=== PATIENT | male | born 1955 | race Caucasian/White ===

== ENCOUNTER 2017-01-25 08:42 | Day surgery (SDC) | payer BC ==
[2017-01-25] MEDS ORDERED: BACITRACIN IRRIGATION/NS 50,000 UNITS/1,000 ML BTL IRR ONE (08:45)
[2017-01-25] MEDS ORDERED: NS 1,000 ML IV ONE (08:45)
[2017-01-25] MEDS ORDERED: ceFAZolin 2 GM/DEXTROSE 100 ML IV ONE (08:45)
[2017-01-25] MEDS ORDERED: diphenhydrAMINE 25 MG CAP PO ONE (08:45)
[2017-01-25] MEDS ORDERED: DIAZEPAM 5 MG TAB PO ONE (08:45)
--- NOTE | 2017-01-25 08:59 | CPEKG ---
Heart Rate: 83 RR Interval: 723 QRSD Interval: 88 QT Interval: 364 QTC Interval: 428 QRS [place]: 39 T Wave [place]: 40 EKG Severity - ABNORMAL ECG - EKG Impression: AFIB/FLUT AND V-PACED COMPLEXES EKG Impression: LOW VOLTAGE IN FRONTAL LEADS Electronically Signed By: Butch Peters 25-Jan-2017 17:35:31
[2017-01-25 09:18] LABS: % IMMATURE GRANULYOCYTES 0.6 % (0.0-1.1); ABSOLUTE IMMATURE GRANULOCYTES 0.06 10^3/uL (0.00-0.10); ADD DIFF? NO; ADD MORPH? NO; ADD SCAN? NO; ATYPICAL LYMPHOCYTE FLAG 30 (0-99); FRAGMENT RBC FLAG 0 (0-99); HEMATOCRIT 52.3 % (40.0-51.0); HEMOGLOBIN 17.6 g/dL (13.7-17.5); LEFT SHIFT FLG 0 (0-99); LIPEMIA HEMOLYSIS FLAG 80 (0-99); MEAN CELL HEMOGLOBIN 32.8 pg (27.9-34.1); MEAN CELL HEMOGLOBIN CONCENTR. 33.7 g/dL (32.4-36.7); MEAN CELL VOLUME 97.4 fL (81.5-99.8); MEAN PLATELET VOLUME 8.9 fL (8.7-11.7); PLATELET CLUMPS FLAG 0 (0-99); PLATELET COUNT 183 10^3/uL (150-400); RED BLOOD CELL COUNT 5.37 10^6/uL (4.40-6.38); RED CELL DISTRIBUTION WIDTH 14.5 % (11.5-15.2)
[2017-01-25 09:33] LABS: ANION GAP 12 mEq/L (8-16); CALCIUM 9.2 mg/dL (8.5-10.4); CARBON DIOXIDE 21 mEq/l (22-31); CHLORIDE 110 mEq/L (97-110); GLOMERULAR FILTRATION RATE > 60; GLUCOSE 81 mg/dL (70-100); POTASSIUM 5.4 mEq/L (3.5-5.2); SODIUM 143 mEq/L (134-144); SPECIMEN HEMOLYSIS 174
[2017-01-25] MEDS ORDERED: MIDAZOLAM 2 MG/2 ML VIAL ONE (09:41)
[2017-01-25] MEDS ORDERED: LIDO/EPI 1% **for epidural** 30 ML SDV ONE (09:41)
[2017-01-25] MEDS ORDERED: LIDOCAINE 1% 300 MG/30 ML SDV ONE (09:41)
[2017-01-25] MEDS ORDERED: fentaNYL 100 MCG/2 ML INJ ONE (09:41)
[2017-01-25] MEDS ORDERED: BUPIVACAINE 0.5% 30 ML SDV ONE (09:41)
[2017-01-25 09:55] LABS: INR 1.23 (0.83-1.16); PROTIME(PATIENT) 15.5 SEC (12.0-15.0)
--- NOTE | 2017-01-25 11:26 | SUROPNOTE ---
[facility] Operative Report - Surgery PROCEDURE: GEN CHANGE INDICATION: PACER AT [facility] PROCEDURE DETAILS: After consent was obtained, the patient was brought to the cardiac label operator in fasted state, and placed on the table in usual sterile fashion. Fluoroscopic review of the old pacer and lead position was undertaken. Lidocaine was used for local anesthetic. Heart rate, blood pressure, respirations, and oxygen saturations were monitored over the course of the procedure. Initial incision was made with a #12 blade, then a Bovie was used for depth and width. The old device was exposed and explanted, and a raytech soaked in Bacitracin was placed into the surgical pocket. The lead were interrogated Atrial lead: P wave at 0.5 mV with impedance of 448 ohms. It was noted the patient was in atrial fibrillation and no threshold was obtained. Ventricular lead: R wave was 8.5 mV with impedance of 390 ohms. Threshold of 0.8 V at 0.4 ms. Old device: Biotronik Cylos DR Rock#: [id number]; SN: [id number] Interrogation of the old device with 20 minutes of atrial fibrillation noted on 06/16/16, and brief salvos were noted since that time. I discussed this finding with the patient's . [id number] score is zero. It was also noted that the patient displayed apnic periods during the procedure (given the sedation that was noted). The pocket was inspected for haemostasis and flushed with Bacitracin. No bleeding was appreciated from the pocket. The new device was implanted: Biotronik Eluna 8 MILANA Kidd [id number] SN: [id number] This device was not sutured into position (no changes to the old pocket were made). Interrogation of the device with normal functioning noted. No complications were appreciated No need for CXR or overnight stay. The patient to go home after recovery from the sedation Strong recommendations against smoking Would have formal sleep study given the pAF noted ASA therapy alone for the time being given the [id number] score risk
--- NOTE | 2017-01-25 11:53 | CPEKG ---
Heart Rate: 77 RR Interval: 779 P-R Interval: 213 QRSD Interval: 144 QT Interval: 456 QTC Interval: 517 P [place]: 0 QRS [place]: 109 T Wave [place]: -8 EKG Severity - ABNORMAL ECG - EKG Impression: VENTRICULAR-PACED COMPLEXES EKG Impression: ATRIAL FIBRILLATION, V-RATE 0-0 Electronically Signed By: Butch Peters 25-Jan-2017 17:35:01
== END 2017-01-25 13:31 | disposition home or self-care (01) ==
LOC: FCATH 08:42
PROVIDERS: ATTEND Internal Medicine Cardiovascular Disease
PROC: 0JH606Z Insertion of Pacemaker, Dual Chamber into Chest Subcutaneous Tissue and Fascia, Open Approach (ICD-10-PCS; principal; 2017-01-25)
PROC: 0JPT0PZ Removal of Cardiac Rhythm Related Device from Trunk Subcutaneous Tissue and Fascia, Open Approach (ICD-10-PCS; principal; 2017-01-25)
DX: Z45.010 Encounter for checking and testing of cardiac pacemaker pulse generator [battery] (principal); I25.10 Atherosclerotic heart disease of native coronary artery without angina pectoris; I48.0 Paroxysmal atrial fibrillation; I73.9 Peripheral vascular disease, unspecified; E78.5 Hyperlipidemia, unspecified; Z72.0 Tobacco use; I71.4 Abdominal aortic aneurysm, without rupture; I49.5 Sick sinus syndrome
CPT/HCPCS: C1785; J0690; J2250; J3010

== ENCOUNTER → 2017-02-15 | Outpatient (CLI) | payer BC ==
[~2017-02-15] MED LIST: IOPAMIDOL (ISOVUE 370) 100 ML BTL IV ONE
== END ==
LOC: FIMAGING 14:34
PROVIDERS: ATTEND Radiology Diagnostic Radiology
DX: I71.4 Abdominal aortic aneurysm, without rupture (principal); I77.1 Stricture of artery
CPT/HCPCS: Q9967

== ENCOUNTER 2017-04-13 05:47 | Inpatient (IN) | payer BC ==
[~2017-04-13 05:47] MED LIST changes: -IOPAMIDOL (ISOVUE 370) 100 ML BTL IV ONE; +cefOXitin SODIUM 2 GM in D5W 100 ML IV ONE
[2017-04-13] MEDS ORDERED: LR 1,000 ML IV ONE (06:14)
[2017-04-13] MEDS ORDERED: LIDOCAINE 1% 2 ML INJ ID PRN (06:14)
[2017-04-13 06:54] LABS: % IMMATURE GRANULYOCYTES 0.6 % (0.0-1.1); ABSOLUTE IMMATURE GRANULOCYTES 0.05 10^3/uL (0.00-0.10); ADD DIFF? NO; ADD MORPH? NO; ADD SCAN? NO; ATYPICAL LYMPHOCYTE FLAG 10 (0-99); FRAGMENT RBC FLAG 0 (0-99); HEMATOCRIT 46.1 % (40.0-51.0); HEMOGLOBIN 15.9 g/dL (13.7-17.5); LEFT SHIFT FLG 0 (0-99); LIPEMIA HEMOLYSIS FLAG 90 (0-99); MEAN CELL HEMOGLOBIN 32.9 pg (27.9-34.1); MEAN CELL HEMOGLOBIN CONCENTR. 34.5 g/dL (32.4-36.7); MEAN CELL VOLUME 95.2 fL (81.5-99.8); MEAN PLATELET VOLUME 8.7 fL (8.7-11.7); PLATELET CLUMPS FLAG 10 (0-99); PLATELET COUNT 149 10^3/uL (150-400); RED BLOOD CELL COUNT 4.84 10^6/uL (4.40-6.38); RED CELL DISTRIBUTION WIDTH 13.5 % (11.5-15.2)
[2017-04-13 07:03] LABS: INR 1.2 (0.83-1.16); PROTIME(PATIENT) 15.2 SEC (12.0-15.0)
[2017-04-13 07:08] LABS: ANION GAP 11 mEq/L (8-16); CALCIUM 9.1 mg/dL (8.5-10.4); CARBON DIOXIDE 22 mEq/l (22-31); CHLORIDE 107 mEq/L (97-110); GLOMERULAR FILTRATION RATE > 60; GLUCOSE 93 mg/dL (70-100); POTASSIUM 4.1 mEq/L (3.5-5.2); SODIUM 140 mEq/L (134-144)
[2017-04-13] MEDS ORDERED: BUPIVACAINE 0.5% 30 ML SDV ONE (07:50)
[2017-04-13] MEDS ORDERED: ONDANSETRON 4 MG/2 ML VIAL IVP PRN ×2 (07:52→09:49)
[2017-04-13] MEDS ORDERED: HYDROmorphONE/DILAUDID 1 MG/ML INJ IVP PRN (07:52)
[2017-04-13] MEDS ORDERED: ALBUTEROL 3 ML DEYVIAL IH PRN (07:52)
[2017-04-13] MEDS ORDERED: NALOXONE HCL 0.4 MG/ML INJ IVP PRN (07:52)
[2017-04-13] MEDS ORDERED: OXYCODONE/APAP 5/325 TAB PO PRN ×2 (07:52→09:49)
[2017-04-13] MEDS ORDERED: NS 500 ML IV PRN (07:52)
[2017-04-13] MEDS ORDERED: fentaNYL 100 MCG/2 ML INJ IVP PRN (07:52)
[2017-04-13] MEDS ORDERED: MIDAZOLAM 2 MG/2 ML VIAL IVP ONE (07:52)
[2017-04-13] MEDS ORDERED: ACETAMINOPHEN 500 MG TAB PO PRN ×2 (07:52→17:12)
[2017-04-13] MEDS ORDERED: THROMBIN (BOVINE) 20,000 UNIT VIAL TP ONE (07:52)
--- NOTE | 2017-04-13 07:52 | PDANEPAE ---
ANE History of Present Illness AAA Endo ANE Past Medical History - Cardiovascular History Hx Hypertension: Yes Hx Arrhythmias: Yes Hx Chest Pain: No Hx Coronary Artery / Peripheral Vascular Disease: No Hx CHF / Valvular Disease: No Hx Palpitations: No Cardiovascular History Comment: SSS, ASYSTOLE - Pulmonary History Hx COPD: No Hx Asthma/Reactive Airway Disease: No Hx Recent Upper Respiratory Infection: No Hx Oxygen in Use at Home: No Hx Sleep Apnea: No Sleep Apnea Screening Result - Last Documented: Positive - Neurologic History Hx Cerebrovascular Accident: No Hx Seizures: No Hx Dementia: No - Endocrine History Hx Diabetes: No - Renal History Hx Renal Disorders: No - Liver History Hx Hepatic Disorders: Yes Hepatic History Comment: HEPATITIS B - Neurological & Psychiatric Hx Hx Neurological and Psychiatric Disorders: No - Cancer History Hx Cancer: No - Congenital Disorder History Hx Congenital Disorders: No - GI History Hx Gastrointestinal Disorders: Yes Gastrointestinal History Comment: DIVERTICULITIS - Other Health History Other Health History: NONE - Chronic Pain History Chronic Pain: No - Surgical History Prior Surgeries: pacemaker placement ANE Review of Systems Review of Systems: - Exercise capacity METS (RN): 4 METS - Pacemaker Pacemaker Type: Bi-Ventricular Pacemaker Vendor Management Consultant: Nexopia Pacemaker Mode: DDD Pacemaker Set Rate: 75 Date Pacemaker Last Checked: 02/02/17 ANE Patient History - Allergies Allergies/Adverse Reactions: No Allergies [NKDA] Allergy (Verified 01/25/17 08:45) - Home Medications Home Medications: Acetaminophen [Tylenol ES 500 mg (*)] 1,000 mg PO DAILY PRN 01/25/17 [Last Taken 3 Days Ago ~01/22/17] Aspirin EC [Aspirin EC 81 mg (*)] 81 mg PO DAILY 01/25/17 [Last Taken 01/25/17] Atorvastatin Calcium [Lipitor 20 mg (*)] 20 mg PO HS 01/25/17 [Last Taken ] Diltiazem HCl [Cardizem Cd] 240 mg PO DAILY 01/25/17 [Last Taken 01/25/17] Herbals/Supplements -Info Only 1 ea PO DAILY 01/25/17 [Last Taken Unknown] Ibuprofen [Motrin (*)] 400 mg PO DAILY PRN 01/25/17 [Last Taken Unknown] Metoprolol Tartrate [Lopressor 100 mg (*)] 100 mg PO BID 01/25/17 [Last Taken ] Multivitamins [Multivitamin (*)] 1 each PO DAILY 01/25/17 [Last Taken Unknown] Wilson-3 Fatty Acids [Fish Oil 1000 mg (*)] 1,000 mg PO DAILY 01/25/17 [Last Taken Unknown] - NPO status NPO Since - Liquids (Date): 04/12/17 NPO Since - Liquids (Time): 23:00 NPO Since - Solids (Date): 04/12/17 NPO Since - Solids (Time): 21:00 - Smoking Hx Smoking Status: Current every day smoker - Family Anes Hx Family Hx Anesthesia Complications: none ANE Labs/Vital Signs - Labs Result Diagrams: 04/13/17 06:40 04/13/17 06:40 - Vital Signs Blood Pressure: 116/85 Heart Rate: 81 Respiratory Rate: 16 O2 Sat (%): 95 Height: 177.8 cm Weight: 81.647 kg ANE Physical Exam - Airway Neck exam: FROM Mallampati Score: Class 2 Mouth exam: dentures - Pulmonary Pulmonary: clear to auscultation - Cardiovascular Cardiovascular: regular rate and rhythym - ASA Status ASA Status: III ANE Anesthesia Plan Anesthesia Plan: general endotracheal anesthesia
[2017-04-13] MEDS ORDERED: PROPOFOL 200 MG/20 ML VIAL ONE (07:58)
[2017-04-13] MEDS ORDERED: ROCURONIUM 100 MG/10 ML VIAL ONE (07:58)
[2017-04-13] MEDS ORDERED: fentaNYL 100 MCG/2 ML INJ ONE ×2 (07:58→10:59)
[2017-04-13] MEDS ORDERED: LIDOCAINE 2% 5 ML SDV ONE (07:59)
--- NOTE | 2017-04-13 08:01 | PDHPUP ---
History & Physical Update H&P update statement: This history and physical update is based on an assessment of the patient which was completed after admission or registration (within 24 hours), but prior to the surgery/procedure. H&P update: H&P reviewed & patient examined, no change in patient's condition since H&P completed
[2017-04-13] MEDS ORDERED: MIDAZOLAM 2 MG/2 ML VIAL ONE (08:06)
[2017-04-13] MEDS ORDERED: VASOPRESSIN 20 UNIT/ML VIAL ONE (08:43)
[2017-04-13] MEDS ORDERED: METOCLOPRAMIDE 10 MG/2 ML VIAL ONE (08:48)
[2017-04-13] MEDS ORDERED: ONDANSETRON 4 MG/2 ML VIAL ONE (08:48)
[2017-04-13] MEDS ORDERED: DEXAMETHASONE 4 MG/ML VIAL ONE (08:48)
--- NOTE | 2017-04-13 08:52 | GHP ---
[f rep st] PREOP HISTORY AND PHYSICAL DATE OF ADMISSION: 04/13/2017 CHIEF COMPLAINT: Abdominal aortic aneurysm. HISTORY OF PRESENT ILLNESS: The patient is a 61-year-old male, who has an abdominal aortic aneurysm. He was initially seen in the office in October of 2016. He was seen by interventional radiologist Dr. Dwyer it was determined that he could be candidate for endovascular stent graft repair. CT angiogram reveals his aneurysm to be about 6.3 cm in size with a saccular form. The patient feels some leg cramps and fatigue when walking fast to about a 3- block distance. He is still smoking, but trying to quit. CTA also outlines peripheral arterial disease. PAST MEDICAL HISTORY: Atrial fibrillation, coronary artery disease, diverticulitis, hepatitis, hypercholesterolemia, hyperlipidemia, permanent pacemaker placement, peripheral vascular disease, sick sinus syndrome, tobacco use. PAST SURGICAL HISTORY: Includes pacemaker placement. MEDICATIONS: Acetaminophen, aspirin, Cardizem, Co-Q10, fish oil, ibuprofen, Lipitor, metoprolol, multivitamin. ALLERGIES: No known drug allergies. FAMILY HISTORY: Includes atrial fibrillation and coronary artery disease. SOCIAL HISTORY: The patient does not drink alcohol. He has 3 children. He does smoke, but is trying to quit, currently at less than a half pack per day. REVIEW OF SYSTEMS: A 10-point review of systems negative, except for that noted in the HPI. PHYSICAL EXAM: GENERAL: Well developed, well nourished. HEENT: Normocephalic , atraumatic. CHEST: Clear to auscultation bilaterally. CARDIAC: Regular rate and rhythm. ABDOMEN: Soft with pulsating mass, nontender. EXTREMITIES: Warm, well perfused. Palpable femoral pulses. Absent pedal pulses. NEUROLOGIC : Grossly intact. IMPRESSION: This is a 61-year-old male with an abdominal aortic aneurysm and peripheral vascular disease with claudication symptoms. PLAN: Plan is to proceed with exposure and closure of femoral arteries for placement of stent graft for abdominal aortic aneurysm repair. We will also perform bilateral endarterectomies. This may improve his claudication symptoms ; however, he may require further intervention for this. Risks and options have been discussed including open repair, and he requests to proceed. /[id number]/MODL MTDD
[2017-04-13] MEDS ORDERED: HEPARIN 10,000 UNIT/10 ML MDV ONE (09:43)
--- NOTE | 2017-04-13 09:55 | POSTOPPROG ---
Post Op Note Date of Operation: 04/13/17 Surgeon: Guillermina Don Asian Studies Professor: Guillermina Don Anesthesiologist: Ebenezer Naranjo Anesthesia: GET(General Endotracheal) Pre-op Diagnosis: AAA Post-op Diagnosis: same Procedure: B femoral artery exposures and closures for EVAR Findings: R groin with scarring, hemostatic control achieved. Inf/Abcess present in the surg proc area at time of surgery?: No EBL: Minimal Complications: none
--- NOTE | 2017-04-13 09:58 | POSTOPPROG ---
Post Op Note Date of Operation: 04/13/17 Surgeon: Guillermina Don Obiee Obia Solution Architect: Guillermina Don Anesthesiologist: Ebenezer Naranjo Anesthesia: GET(General Endotracheal) Pre-op Diagnosis: PAD, claudication Post-op Diagnosis: same Procedure: B femoral endartectomy c patch closures Findings: significant irregular calcified and granular plaques Inf/Abcess present in the surg proc area at time of surgery?: No EBL: 50-100 Complications: none Specimen(s): plaque to pathology
[2017-04-13] MEDS ORDERED: IOPAMIDOL (ISOVUE-300) 100 ML BTL ONE ×2 (10:14→10:27)
[2017-04-13] MEDS ORDERED: ROCURONIUM 50 MG/5 ML VIAL ONE (11:53)
[2017-04-13] MEDS ORDERED: PROTAMINE SULFATE 50 MG/5 ML VIAL IVP ONE (12:38)
[2017-04-13] MEDS ORDERED: SUGAMMADEX SODIUM 200 MG/2 ML VIAL IVP ONE (12:45)
--- NOTE | 2017-04-13 13:53 | POSTANESTH ---
Post Anesthetic Evaluation Cardiovascular Status: Normal, Stable Respiratory Status: Normal, Stable Level of Consciousness/Mental Status: Can Participate in Eval, Mildly Sleepy, Arousable Pain Control: Adequate, Prn Tx Ordered Nausea/Vomiting Control: Adequate, Prn Tx Ordered Complications Possibly Related to Anesthesia: None Noted
[2017-04-13] MEDS: HYDROmorphONE/DILAUDID 1 MG/ML INJ IVP PRN ×3 (14:20→23:44)
[2017-04-13] MEDS: NS W/ 20 KCl/L 1,000 ML IV SCH ×2 (14:22→22:25)
--- NOTE | 2017-04-13 15:24 | CPEKG ---
Heart Rate: 92 RR Interval: 652 P-R Interval: 136 QRSD Interval: 90 QT Interval: 388 QTC Interval: 481 P [place]: 0 QRS [place]: 66 T Wave [place]: 102 EKG Severity - ABNORMAL ECG - EKG Impression: A-V DUAL-PACED COMPLEXES W/ SOME INHIBITION Electronically Signed By: Butch Phipps 15-Apr-2017 14:04:17
--- NOTE | 2017-04-13 15:29 | GOP ---
[f rep st] OPERATIVE REPORT DATE OF OPERATION: 04/13/2017 SURGEON: Munir Pierre MD INFORMATION ASSURANCE OFFICER: CHERIE Parks ANESTHESIOLOGIST: Ebenezer Naranjo DO PREOPERATIVE DIAGNOSIS: Abdominal aortic aneurysm and peripheral vascular disease with common femora l artery stenoses. POSTOPERATIVE DIAGNOSIS: Abdominal aortic aneurysm with peripheral vascular disease and common femor al artery stenoses. PROCEDURE PERFORMED: Common femoral artery exposure bilaterally for endovascular stent graft and jermaine sure plus bilateral common femoral and profunda femoris endarterectomies with Dacron patch profundopl asties. FINDINGS: The patient was found to have extensive calcified plaque and narrowing of the common femor al artery and the origins of the profunda femoris. On the left side, the superficial femoral artery was also occluded. DESCRIPTION OF PROCEDURE: The patient was taken to the operating room where he received satisfactory general endotracheal anesthesia by Dr. Naranjo, placed in supine position, prepped and draped in usual sterile fashion. Bilateral vertical incisions were made in both groins. Dissection extended down t hrough the subcutaneous tissue. Hemostasis was carefully obtained. The common femoral, profunda fem arcadio, and superficial femoral artery were all dissected free and controlled with vessel loops along w ith multiple branches on both sides. At that point, the case was turned over to Dr. Dwyer for endovasc ular stent repair with aortic aneurysm. Once that was completed, we returned, the sheaths were remov ed, adequate control was obtained. Vertical arteriotomies were made in the common femoral artery ext ending down to the profunda femoris. Endarterectomies were then done on both common femoral arteries . The right plaque was more extensive than the left plaque even though the left was more critical th an the right. Plaques were removed. The endpoints were controlled with 6-0 Prolene mattress sutures to tack down the endpoints. All vessels were flushed. Bilateral Dacron patches were placed, extend ed onto the profunda femoris as a profundoplasty. These were sutured in place with running Hemashiel d 7 sutures. Flow was first established on the left side through the superficial femoral and then ba ck down the profunda femoris. On the right side, the opposite approach was taken as flow was first e stablished through the profunda and then back down the superficial femoral artery. Hemostasis was fu lly achieved. Heparin was reversed with protamine. The wounds were sprayed with some topical thromb in and closed in layers using 2-0 Vicryl for the fascia, 3-0 Vicryl for the subcu and skin jonathan fo r the skin. All layers infiltrated with 0.5% Marcaine. The wounds were dressed. [facility] was taken [facility] room in good condition. There were no complications. /[id number]/MODL
--- NOTE | 2017-04-13 18:00 | SOAPPROG ---
[facility] Progress Note Assessment/Plan: Assessment: POSTOP ENDOVASCULAR AAA REPAIR WITH ENDARTERECTOMIES/DOING GREAT GOOD PULSES ON THE RIGHT, DOPPLER PULSES ON THE LEFT VITAL SIGNS STABLE, WOUND OKAY Plan: AMBULATE IN THE A.M. 04/13/17 17:59 Objective: Vital Signs Temp Pulse Resp BP Pulse Ox 36.6 C 88 14 113/67 100 04/13/17 16:00 04/13/17 16:00 04/13/17 16:00 04/13/17 16:00 04/13/17 16:00 Laboratory Results 04/13/17 06:40 04/13/17 06:40 04/12/17 04/13/17 04/14/17 05:59 05:59 05:59 Intake Total 2300 Output Total 1650 Balance 650 PT 15.2 SEC (12.0-15.0) H 04/13/17 06:40 INR 1.20 (0.83-1.16) H 04/13/17 06:40 ICD10 Worksheet Patient Problems: Problems Problem Status Onset Abdominal aortic aneurysm Acute Abdominal aortic aneurysm (AAA) greater than 5.5 cm in diameter in male Acute - ICD10 Problem Qualifiers (1) Abdominal aortic aneurysm (2) Abdominal aortic aneurysm (AAA) greater than 5.5 cm in diameter in male
--- NOTE | 2017-04-13 20:37 | SOAPPROG ---
SO[facility] Progress Note Assessment/Plan: Assessment: Doing well from stentgraft standpoint. Post bilateral DIETARY DIRECTOR endarterectomy. Sigmoid colon thickening: patient had prior diverticulitis, and has never had a colonoscopy. Bladder wall mass posterolateral LT of main bladder: diverticulum vs mass. Patient does not have a primary care physician. Plan: 1. Groin management and D/C planning per surgery. Once discharged, IR will contact patient re: CTA follow up in next month or two. 2. Outpatient referral to GI and urology suggested. 3. Discussed with patient and his daughter aysha. 04/13/17 20:33 Subjective: Resting. No complaints. Objective: Vital Signs Temp Pulse Resp BP Pulse Ox 36.6 C 92 15 125/76 H 99 04/13/17 16:00 04/13/17 18:00 04/13/17 18:00 04/13/17 18:00 04/13/17 18:00 Laboratory Results 04/13/17 06:40 04/13/17 06:40 04/12/17 04/13/17 04/14/17 05:59 05:59 05:59 Intake Total 2300 Output Total 1650 Balance 650 PT 15.2 SEC (12.0-15.0) H 04/13/17 06:40 INR 1.20 (0.83-1.16) H 04/13/17 06:40 Groins without hematoma. Pulses not changed. ICD10 Worksheet Patient Problems: Problems Problem Status Onset Abdominal aortic aneurysm Acute Abdominal aortic aneurysm (AAA) greater than 5.5 cm in diameter in male Acute
[2017-04-13] MEDS ORDERED: ATORVASTATIN CALCIUM 20 MG TAB PO SCH (21:00)
[2017-04-13] MEDS: DOCUSATE SODIUM 100 MG CAP PO SCH (21:17)
[2017-04-13] MEDS: METOPROLOL TARTRATE 100 MG TAB PO SCH (21:18)
[2017-04-14] MEDS: HYDROmorphONE/DILAUDID 1 MG/ML INJ IVP PRN (04:21)
[2017-04-14 04:44] LABS: HEMATOCRIT 41.6 % (40.0-51.0); HEMOGLOBIN 14.3 g/dL (13.7-17.5)
[2017-04-14 04:56] LABS: ANION GAP 5 mEq/L (8-16); CALCIUM 8.3 mg/dL (8.5-10.4); CARBON DIOXIDE 23 mEq/l (22-31); CHLORIDE 106 mEq/L (97-110); CREATININE 0.9 mg/dL (0.7-1.3); GLOMERULAR FILTRATION RATE > 60; GLUCOSE 111 mg/dL (70-100); POTASSIUM 4.5 mEq/L (3.5-5.2); SODIUM 134 mEq/L (134-144)
[2017-04-14] MEDS: NS W/ 20 KCl/L 1,000 ML IV SCH (06:09)
[2017-04-14 07:53] VITALS: BP 118/90; RESP 13; TEMP 98.3; O2SAT 92
[2017-04-14] MEDS: DOCUSATE SODIUM 100 MG CAP PO SCH (08:27)
[2017-04-14] MEDS: METOPROLOL TARTRATE 100 MG TAB PO SCH (08:28)
[2017-04-14 08:32] VITALS: PULSE 97
[2017-04-14] MEDS ORDERED: ASPIRIN EC 81 MG TAB PO SCH (09:00)
[2017-04-14] MEDS ORDERED: DILTIAZEM XR 240 MG CAP PO SCH (09:00)
--- NOTE | 2017-04-14 09:17 | SOAPPROG ---
SOAP Progress Note Assessment/Plan: Assessment/Plan: 61 Y M s/p B femoral artery exposure, endarterectomy, and patch closure c EVAR per IR. POD#1. Overall doing well. In afib. Patient says he spends about 30% of his time in afib. On metoprolol, ASA, diltiazem. Paced. Sees Dr. Garcia, cardiology. Wounds intact. Palpable pedal pulses. Ambulating independently per family, pt, and RN. Burdick out. Spontaneous void pending. Consider PT consult today. Dispo: likely home later today if continues to do well. Rx Percocet in chart. Will need f/u c both Reymundo and Ignacio. Will need f/u re: bladder and colon thickening. All this discussed bedside and reiterated in d/c plan. S: minimal pain. walked to bathroom fine. no n/v. no abd or back pain. legs feel fine. O: alert, nad ncat no wob irregular rhythm abd soft inc well dressed, min shadowing R, staple line viewed and intact. palpable pedal pulses, R>L 04/14/17 09:17 Objective: Vital Signs Temp Pulse Resp BP Pulse Ox 36.8 C 97 13 118/90 H 92 04/14/17 07:49 04/14/17 08:28 04/14/17 07:49 04/14/17 08:28 04/14/17 07:49 Laboratory Results 04/14/17 04:20 04/14/17 04:20 04/13/17 04/14/17 04/15/17 05:59 05:59 05:59 Intake Total 4110 Output Total 3050 Balance 1060 PT 15.2 SEC (12.0-15.0) H 04/13/17 06:40 INR 1.20 (0.83-1.16) H 04/13/17 06:40 ICD10 Worksheet Patient Problems: Problems Problem Status Onset Abdominal aortic aneurysm Acute Abdominal aortic aneurysm (AAA) greater than 5.5 cm in diameter in male Acute
--- NOTE | 2017-04-14 16:03 | ASDISCHSUM ---
Discharge Information Plan Status:Home with Home Health Medically Cleared to Leave: Discharge Date:04/14/2017 11:57 AM CM D/C Disposition:Home, Routine, Self-Care ADT D/C Disposition:Home, Routine, Self-Care Projected Discharge Date:04/14/2017 11:57 AM Transportation at D/C:Family Discharge Delay Reason: Follow-Up Date:04/14/2017 11:57 AM Discharge Slot: Final Diagnosis: Placement Information Patient Contact Information Contact Name:JUNIOR Relationship: Address: Work Phone: City: [facility] Phone: State/Zip Code: Email: Financial Information Financial Class:HMO and PPO Plans Primary Plan Desc: OUT OF STATE PPO Primary Plan Number:[id number] Secondary Plan Desc: Secondary Plan Number: Assessment Information Intervention Information
[2017-04-15] MEDS ORDERED: ENOXAPARIN 40 MG/0.4 ML SYR SC SCH (09:00)
== END 2017-04-14 11:57 | disposition home or self-care (01) | DRG 254 ==
LOC: F2N 05:47 → EDSTATUS 08:00 → F2N 13:55
PROVIDERS: ADMIT Surgery; ATTEND Surgery
DX: I71.4 Abdominal aortic aneurysm, without rupture (principal); I77.1 Stricture of artery; I48.91 Unspecified atrial fibrillation; I25.10 Atherosclerotic heart disease of native coronary artery without angina pectoris; E78.5 Hyperlipidemia, unspecified; Z95.0 Presence of cardiac pacemaker
CPT/HCPCS: C1725; C1768; C1769; C1894; J0694; J1100; J1170; J1644; J2250; J2405; J2704; J2720; J2765; J3010; Q9967

== ENCOUNTER → 2017-11-06 | Outpatient (CLI) | payer BC | LOC: FCPNEURO 21:00 | PROVIDERS: ATTEND Psychiatry & Neurology Sleep Medicine | DX: G47.31 Primary central sleep apnea (principal); G47.33 Obstructive sleep apnea (adult) (pediatric) ==

== ENCOUNTER → 2018-10-31 | Outpatient (CLI) | payer BC ==
[~2018-10-31] MED LIST changes: +IOPAMIDOL (ISOVUE 370) 100 ML BTL IV ONE; -cefOXitin SODIUM 2 GM in D5W 100 ML IV ONE
== END ==
LOC: FIMAGING 15:01
PROVIDERS: ATTEND Radiology Diagnostic Radiology
DX: I71.4 Abdominal aortic aneurysm, without rupture (principal); K63.89 Other specified diseases of intestine
CPT/HCPCS: 82565-PO; Q9967